=== PATIENT | male | born 1980 | race Two or more races ===

== ENCOUNTER 2018-01-18 11:20 | Emergency (ER) ==
[2018-01-18 11:27] VITALS: BP 138/89; TEMP 96.2; BMI 19.1
--- NOTE | 2018-01-18 11:59 | ED.PDOC ---
General ED Provider: Dr. RICHARD HICKMAN Chief Complaint: Tooth Problem Stated Complaint: dental pain Time Seen by Physician: 11:30 (seen with taylor at all times ) Mode of Arrival: Walk-In Information Source: Patient Exam Limitations: No limitations Nursing and Triage Documentation Reviewed and Agree: Yes Does patient meet sepsis criteria?: No System Inflammatory Response Syndrome: Not Applicable Sepsis Protocol: For patient's 13 years and over: Temp is 96.8 and below OR 101 and greater Pulse >90 BPM Resp >20/minute Acutely Altered Mental Status Are patient's symptoms suggestive of a new infection, such as: -Pneumonia -Skin, Soft Tissue -Endocarditis -UTI -Bone, Joint Infection -Implantable Device -Acute Abdominal Infection -Wound Infection -Meningitis -Blood Stream Catheter Infection -Unknown EENT Complaint Exam - Dental/Oral Complaint/Exam Mechanism of Injury: No known trauma Onset/Duration: 1 week Symptoms Are: Still present Timing: Constant Initial Severity: Moderate Current Severity: Moderate Character: Reports: Aching Aggravating: Reports: None Alleviating: Reports: None Associated Signs and Symptoms: Denies: Swelling, Discharge, Fever, Foul odor, Foul taste in mouth Related History: Reports: Similar episode Cardiac Risk Factors: Reports: None Dental/Oral Surgical History: Reports: None Tooth Findings: Present: Gross caries, Dental fracture Cervical Lymphadenopathy Present: No Facial Swelling Present: No Bleeding Present: No Oropharynx Findings: Absent: Clots, Active bleeding Septal Hematoma: No Foreign Body Present: No Dysphagia Present: No Drooling Present: No Asymmetrical Tonsillar Swelling Present: No Uvula Midline: Yes Helen-tonsillar Fluctuence: No Trismus Present: No Palatal Petechiae Present: No Scarlatinaform Rash Present: No Lesions: Absent: Lip, Gums, Tongue, Buccal Mucosa, Pharynx Exanthem: Absent: Lip, Gums, Tongue, Buccal Mucosa, Pharynx Vesicles: Absent: Lip, Gums, Tongue, Buccal Mucosa, Pharynx Teeth Picture: 1 - decay Differential Diagnoses: Fractured Tooth Review of Systems - Review Of Systems Constitutional: Reports: No symptoms Eyes: Reports: No symptoms Ears, Nose, Mouth, Throat: Reports: No symptoms Respiratory: Reports: No symptoms Cardiac: Reports: No symptoms GI: Reports: No symptoms : Reports: No symptoms Musculoskeletal: Reports: No symptoms Skin: Reports: No symptoms Neurological: Reports: No symptoms Endocrine: Reports: No symptoms Hematologic/Lymphatic: Reports: No symptoms All Other Systems: Reviewed and Negative Past Medical History - Past Medical History Previously Healthy: Yes Endocrine: Reports: None Cardiovascular: Reports: None Respiratory: Reports: None Hematological: Reports: None Gastrointestinal: Reports: None Genitourinary: Reports: None Neuro/Psych: Reports: None Musculoskeletal: Reports: None Cancer: Reports: None - Surgical History General Surgical History: Reports: None - Family History Family History: Reports: None - Social History Smoking Status: Current some day smoker, Heavy tobacco smoker Hx Substance Use: No Alcohol Screening: Occasionally - Immunizations Tetanus Shot up to Date: No Physical Exam - Physical Exam Appearance: Well-appearing, No pain distress, Well-nourished Eyes: SERJIO, EOMI, Conjunctiva clear ENT: Ears normal, Nose normal, Oropharynx normal Respiratory: Airway patent, Breath sounds clear, Breath sounds equal, Respirations nonlabored Cardiovascular: RRR, Pulses normal, No rub, No murmur GI/: Soft, Nontender, No masses, Bowel sounds normal, No Organomegaly Musculoskeletal: Normal strength, ROM intact, No edema, No calf tenderness Skin: Warm, Dry, Normal color Neurological: Sensation intact, Motor intact, Reflexes intact, Cranial nerves intact, Alert, Oriented Psychiatric: Affect appropriate, Mood appropriate Critical Care Note - Critical Care Note Total Time (mins): 0 Course - Course Vital Signs: Temp Pulse Resp BP Pulse Ox 01/18/18 11:20 96.2 F L 70 20 138/89 98 Departure - Departure Time of Disposition: 12:00 Disposition: HOME SELF-CARE Discharge Problem: Toothache Instructions: Toothache (ED) Condition: Good Pt referred to PMD for follow-up: Yes IPMP verified?: No Additional Instructions: Please call your Family Physician as soon as possible to schedule a follow-up appointment. Prescriptions: Amoxicillin 500 mg PO Q6HR #30 tablet Hydrocodone/Acetaminophen [[place] 10-325 Tablet] 1 each PO Q8HR #14 tablet Allergies/Adverse Reactions: Allergies No Known Allergies Allergy (Unverified 01/18/18 11:28) Home Medications: Ambulatory Orders Amoxicillin 500 mg PO Q6HR #30 tablet 01/18/18 Hydrocodone/Acetaminophen [[place] 10-325 Tablet] 1 each PO Q8HR #14 tablet Disposition Discussed With: Patient, Family
== END 2018-01-18 12:12 | disposition home or self-care (01) ==
LOC: ED 11:20
DX: K08.89 Other specified disorders of teeth and supporting structures (principal); K02.7 Dental root caries; S02.5XXA Fracture of tooth (traumatic), initial encounter for closed fracture; F17.210 Nicotine dependence, cigarettes, uncomplicated
CPT/HCPCS: 99282

== ENCOUNTER 2018-08-18 09:56 | Outpatient (CLI) ==
--- NOTE | 2018-08-18 10:52 | DI ---
EXAM: Abdomen one view HISTORY: Unspecified abdominal pain COMPARISON: None TECHNIQUE: Single view abdomen was performed. FINDINGS: There are no dilated loops of small bowel. Air and stool throughout the colon. Multiple ca lcific densities project over the left kidney measuring up to 2 mm. Possible calcific densities proj ecting over the right kidney versus stool artifact. There are no acute abnormalities of the bones. P robable phleboliths in the pelvis. IMPRESSION: Left and possibly right nephrolithiasis.
== END 2018-08-18 09:57 | disposition home or self-care (01) ==
LOC: EDSEX 09:56 → LAB 09:56
PROVIDERS: ATTEND Nurse Practitioner Family
DX: Z00.00 Encounter for general adult medical examination without abnormal findings (principal); R19.5 Other fecal abnormalities; R10.9 Unspecified abdominal pain
CPT/HCPCS: 36415; 80053; 80061; 84443; 85025; 86677